=== PATIENT | male | born 1990 | race Caucasian/White ===

== ENCOUNTER 2023-05-19 15:07 | Emergency (ER) | payer OTHER ==
[2023-05-19 15:29] VITALS: BP 165/90; PULSE 61; RESP 18; TEMP 98.1; BMI 37.2
[2023-05-19 17:20] LABS: BASO % 0.4 % (0-2.0); EOS % 0.3 % (0-4.5); HEMATOCRIT 45.3 % (35.4-49); HEMOGLOBIN 15.2 GM/dL (11.7-16.9); LYMPH % 21.9 % (8-40); MCH 28.2 pg (25.7-33.7); MCHC 33.4 g/dl (32.0-35.9); MEAN CELL VOLUME 84.3 fl (80-96); MEAN PLT VOLUME 8.6 fl (7.5-11.1); MONO % 5.1 % (3.8-10.2); NEUT % 72.3 % (42.8-82.8); PLATELET COUNT 285 10^3/uL (134-434); RBC 5.38 M/mm3 (4.00-5.60); WHITE BLOOD COUNT 11.8 K/mm3 (4.0-10.0)
[2023-05-19 17:45] LABS: BLOOD UREA NITROGEN 13.1 mg/dL (7-18); CALCIUM 9.1 mg/dL (8.5-10.1)
[2023-05-19 17:46] LABS: ALBUMIN 4.2 g/dl (3.4-5.0)
[2023-05-19 17:49] LABS: CREATININE 0.8 mg/dL (0.55-1.3)
[2023-05-19 17:50] LABS: BILIRUBIN,TOTAL 0.8 mg/dL (0.2-1); TOT PROT 8.4 g/dl (6.4-8.2)
== END 2023-05-19 20:45 | disposition home or self-care (01) ==
LOC: JER 15:07
DX: S60.511A Abrasion of right hand, initial encounter (principal); R55 Syncope and collapse; M79.641 Pain in right hand; M79.601 Pain in right arm; S50.811A Abrasion of right forearm, initial encounter; S20.311A Abrasion of right front wall of thorax, initial encounter; S06.0X9A Concussion with loss of consciousness of unspecified duration, initial encounter; R20.2 Paresthesia of skin; W22.8XXA Striking against or struck by other objects, initial encounter; Y99.0 Civilian activity done for income or pay
CPT/HCPCS: 36415; 71046-TC-FY; 73130-TC-RT-FY; 80053; 82550; 82553; 84484; 85025; 99284-25